=== PATIENT | female | born 1995 | race Hispanic/Latino ===

== ENCOUNTER 2024-06-07 05:39 | Inpatient (IN) | payer BC ==
[2024-06-07] MEDS ORDERED: Ketorolac Tromethamine 30 MG (1 mL) VIAL ONE (06:13)
[2024-06-07] MEDS ORDERED: Morphine 4 MG/ML VIAL ONE (06:13)
[2024-06-07] MEDS ORDERED: Ondansetron PF 4 MG/2 ML Vial ONE (06:14)
[2024-06-07 06:39] LABS: #Basophils 0.03 10x3/uL (0.0-0.2); #Eosinophils Less than 0.03 10x3/uL (0.0-0.7); %Basophils 0.3 % (0.0-1.0); %Eosinophils 0.2 % (0.0-10.0); %Lymphocytes 12.5 % (21.0-51.0); %Monocytes 3.6 % (0.0-10.0); %Neutrophils 83.1 % (42.0-75.0); Hematocrit 37.1 % (36.0-47.0); Hemoglobin 12.4 g/dL (12.0-16.0); Mean Corpuscular HGB CONC 33.4 g/dL (32.0-36.0); Mean Corpuscular Hemoglobin 27.9 pg (27.0-31.0); Mean Corpuscular Volume 83.6 fL (78.0-98.0); Mean Platelet Volume 9.1 fL (7.4-10.4); Platelet Count 354 10x3/uL (130-400); RBC Distribution Width 12.8 % (11.5-14.5); Red Blood Cell (RBC) Count 4.44 mill/uL (4.20-5.40)
[2024-06-07 06:51] LABS: BHCG - Serum Negative (NEGATIVE); Pregs Control Background? CLEAR/WHITE (CLR/WHITE); Pregs Control Bar Appear? YES (CONTROL BAR)
[2024-06-07 07:00] LABS: Troponin I Less than 0.010 ng/mL (< 0.028)
[2024-06-07 07:53] LABS: ALT (SGPT) 123 U/L (Less than 34); AST (SGOT) 81 U/L (11-34); Albumin 3.6 g/dL (3.1-4.5); Alkaline Phosphatase 213 U/L (40-110); Anion Gap 11 mmol/L (10-20); BUN (Urea Nitrogen) 9 mg/dL (7.0-18.7); Bilirubin, Total 0.7 mg/dL (0.3-1.2); Calc. Creatinine Clearance 0 mL/min (70-130); Carbon Dioxide 24 mmol/L (22-29); Chloride 107 mmol/L (98-107); Estimated GFR 101; Globulin 3.6 g/dL (2.4-3.5); Glucose 118 mg/dL (70-105); Lipase Greater than 4815 U/L (8-78); Potassium 3.7 mmol/L (3.5-5.1); Protein, Total 7.2 g/dL (6.0-8.3); Sodium 138 mmol/L (136-145)
[2024-06-07] MEDS ORDERED: Sodium Chloride 0.9% 100 ML ONE (08:46)
[2024-06-07] MEDS ORDERED: Piperacillin/Tazobactam 3.375 GM VIAL ONE (08:47)
[2024-06-07] MEDS ORDERED: Ondansetron ODT 4 MG TAB PO PRN (09:53)
[2024-06-07] MEDS ORDERED: Acetaminophen 325 MG TAB PO PRN (09:53)
[2024-06-07] MEDS ORDERED: Acetaminophen 650 MG Suppository PR PRN (09:53)
[2024-06-07] MEDS ORDERED: Electrolyte Replacement Protocol 1 EACH FS SCH (10:00)
[2024-06-07] MEDS ORDERED: Piperacillin/Tazobactam 3.375 GM in Sodium Chloride 0.9% 100 ML IVPB SCH (10:00)
[2024-06-07 10:23] LABS: Calcium 9.2 mg/dL (7.8-10.44); Magnesium 1.7 mg/dL (1.6-2.6)
[2024-06-07] MEDS ORDERED: Electrolyte Replacement Protocol FS PRN (11:00)
[2024-06-07] MEDS: Morphine 4 MG/ML VIAL SLOW IVP PRN (11:09)
[2024-06-07] MEDS: Sodium Chloride 0.9% 1,000 ML IV SCH (11:09)
[2024-06-07] MEDS: Magnesium 2 GM/50 ML(in water) 2 GM in Premix 1 BAG IVPB SCH (11:09)
[2024-06-07 12:20] LABS: Bacteria/HPF None Seen HPF (None Seen); Bilirubin Negative (Negative); Blood, Urine Negative (Negative); CAUTI Indications for Culture Dysuria,urgency,freq; Clarity Extra Turbid (Clear); Glucose, Urine (Dipstick) Normal (Negative); Ketone, Urine Negative (Negative); Leukocyte 25 Leu/uL (Negative); Nitrite Negative (Negative); Protein, Urine (Dipstick) 10 mg/dL (Neg-Trace); RBC/HPF None Seen HPF (0-3); Specific Gravity, Urine 1.028 (1.002-1.036); WBC/HPF None Seen HPF (0-3)
[2024-06-07 12:22] LABS: Urine Culture Reflex No No
[2024-06-07] MEDS: Piperacillin/Tazobactam 3.375 GM in Sodium Chloride 0.9% 100 ML IVPB SCH (13:29)
[2024-06-07 14:00] VITALS: BMI 30.7
[2024-06-07] MEDS: Ondansetron PF 4 MG/2 ML Vial IVP PRN (20:15)
[2024-06-08 07:08] LABS: #Basophils 0.04 10x3/uL (0.0-0.2); %Basophils 0.5 % (0.0-1.0); %Eosinophils 0.5 % (0.0-10.0); %Lymphocytes 28.4 % (21.0-51.0); %Monocytes 5.3 % (0.0-10.0); %Neutrophils 64.9 % (42.0-75.0); Hematocrit 35.6 % (36.0-47.0); Hemoglobin 11.3 g/dL (12.0-16.0); Mean Corpuscular HGB CONC 31.7 g/dL (32.0-36.0); Mean Corpuscular Hemoglobin 27.8 pg (27.0-31.0); Mean Corpuscular Volume 87.7 fL (78.0-98.0); Platelet Count 288 10x3/uL (130-400); RBC Distribution Width 12.9 % (11.5-14.5); Red Blood Cell (RBC) Count 4.06 mill/uL (4.20-5.40)
[2024-06-08] MEDS ORDERED: Indomethacin 50 MG SUPP ONE (07:40)
[2024-06-08] MEDS ORDERED: Iopamidol 15 ML ONE (07:41)
[2024-06-08 08:09] LABS: ALT (SGPT) 64 U/L (Less than 34); AST (SGOT) 30 U/L (11-34); Albumin 2.8 g/dL (3.1-4.5); Alkaline Phosphatase 150 U/L (40-110); Anion Gap 10 mmol/L (10-20); BUN (Urea Nitrogen) 9 mg/dL (7.0-18.7); Bilirubin, Total 0.4 mg/dL (0.3-1.2); Calc. Creatinine Clearance 102 mL/min (70-130); Calcium 7.8 mg/dL (7.8-10.44); Carbon Dioxide 20 mmol/L (22-29); Chloride 112 mmol/L (98-107); Estimated GFR 80; Globulin 2.9 g/dL (2.4-3.5); Glucose 64 mg/dL (70-105); Lipase 197 U/L (8-78); Potassium 3.4 mmol/L (3.5-5.1); Protein, Total 5.7 g/dL (6.0-8.3); Sodium 139 mmol/L (136-145)
[2024-06-08] MEDS ORDERED: Promethazine HCl 25 MG/ML VIAL IM PRN (08:33)
[2024-06-08] MEDS ORDERED: Ondansetron HCl/PF 4 MG/2 ML Vial IVP PRN (08:33)
[2024-06-08] MEDS ORDERED: HYDROmorphone 2 MG/ML VIAL SLOW IVP PRN (08:33)
[2024-06-08] MEDS ORDERED: Ondansetron PF 4 MG/2 ML Vial ONE (08:36)
[2024-06-08] MEDS ORDERED: Lidocaine 2% PF 100 mg/5 ml Syringe ONE (08:36)
[2024-06-08] MEDS ORDERED: fentaNYL PF 100 MCG/2 ML SYRINGE ONE (08:36)
[2024-06-08] MEDS ORDERED: Rocuronium Bromide 10 MG/ML (10ML VIAL) ONE (08:36)
[2024-06-08] MEDS ORDERED: PROPOFOL 20 ML ONE (08:36)
[2024-06-08] MEDS ORDERED: Dexamethasone 4 mg/ml Vial ONE (08:36)
[2024-06-08] MEDS ORDERED: Potassium Chloride 20 MEQ in Premix 1 BAG IVPB SCH (09:00)
[2024-06-08] MEDS ORDERED: ePHEDrine Sulfate 50 MG/10 ML VIAL ONE (09:23)
[2024-06-08] MEDS ORDERED: Promethazine HCl 25 MG/ML VIAL ONE (10:39)
[2024-06-08] MEDS: Potassium Chloride 20 MEQ TAB PO SCH (12:22)
[2024-06-08] MEDS: Lactated Ringer's 1,000 ML IV SCH (12:23)
[2024-06-08] MEDS: Morphine 2 MG/ML VIAL SLOW IVP PRN (14:21)
[2024-06-09 06:02] LABS: #Basophils Less than 0.03 10x3/uL (0.0-0.2); #Eosinophils Less than 0.03 10x3/uL (0.0-0.7); %Basophils 0.2 % (0.0-1.0); %Eosinophils 0.1 % (0.0-10.0); %Lymphocytes 31.2 % (21.0-51.0); %Monocytes 7.1 % (0.0-10.0); %Neutrophils 61.2 % (42.0-75.0); Hematocrit 31.2 % (36.0-47.0); Hemoglobin 10.1 g/dL (12.0-16.0); Mean Corpuscular HGB CONC 32.4 g/dL (32.0-36.0); Mean Corpuscular Hemoglobin 28.1 pg (27.0-31.0); Mean Corpuscular Volume 86.9 fL (78.0-98.0); Platelet Count 266 10x3/uL (130-400); RBC Distribution Width 12.7 % (11.5-14.5); Red Blood Cell (RBC) Count 3.59 mill/uL (4.20-5.40)
[2024-06-09 06:16] LABS: Anion Gap 12 mmol/L (10-20); BUN (Urea Nitrogen) 5 mg/dL (7.0-18.7); Calc. Creatinine Clearance 141 mL/min (70-130); Calcium 8.1 mg/dL (7.8-10.44); Carbon Dioxide 18 mmol/L (22-29); Chloride 112 mmol/L (98-107); Estimated GFR 118; Glucose 87 mg/dL (70-105); Potassium 3.9 mmol/L (3.5-5.1); Sodium 138 mmol/L (136-145)
[2024-06-09] MEDS ORDERED: Sodium Chloride 0.9% 100 ML ONE (12:40)
[2024-06-09] MEDS ORDERED: Piperacillin/Tazobactam 3.375 GM VIAL ONE (12:40)
[2024-06-09] MEDS ORDERED: fentaNYL PF 100 MCG/2 ML SYRINGE ONE (14:56)
[2024-06-09] MEDS ORDERED: Midazolam HCl 2 mg/2 ml Vial ONE (14:56)
[2024-06-09] MEDS ORDERED: PROPOFOL 20 ML ONE (14:56)
[2024-06-09] MEDS ORDERED: EPINEPHrine 1 MG/ML VIAL ONE (14:57)
[2024-06-09] MEDS ORDERED: Bupivacaine 0.25% HCL 30 ML VIAL ONE (14:57)
[2024-06-09] MEDS ORDERED: Rocuronium Bromide 10 MG/ML (10ML VIAL) ONE (14:58)
[2024-06-09] MEDS ORDERED: Dexamethasone 4 mg/ml Vial ONE (14:58)
[2024-06-09] MEDS ORDERED: Lidocaine 1% PF 5 ML VIAL ONE (14:58)
[2024-06-09] MEDS ORDERED: Glycopyrrolate 0.2 MG/ML 5 ML SYRINGE ONE (14:59)
[2024-06-09] MEDS ORDERED: Ondansetron PF 4 MG/2 ML Vial ONE (15:51)
[2024-06-09] MEDS ORDERED: SUGAMMADEX SODIUM 200 MG/2 ML VIAL ONE (15:53)
[2024-06-09] MEDS ORDERED: Ketorolac Tromethamine 30 MG (1 mL) VIAL ONE (15:54)
[2024-06-09] MEDS ORDERED: PACU-Morphine 4MG/ML VIAL SLOW IVP PRN (16:35)
[2024-06-09] MEDS ORDERED: HYDROmorphone 2 MG/ML VIAL SLOW IVP PRN (16:35)
[2024-06-09] MEDS ORDERED: Morphine Sulfate 2 MG/ML SYRINGE SLOW IVP PRN (16:35)
[2024-06-09] MEDS ORDERED: Promethazine HCl 25 MG/ML VIAL IM PRN (16:35)
[2024-06-09] MEDS ORDERED: Ondansetron HCl/PF 4 MG/2 ML Vial IVP PRN (16:35)
[2024-06-09] MEDS: Phenol 177 ML BOT PO PRN (20:55)
[2024-06-10 09:51] LABS: ALT (SGPT) 42 U/L (Less than 34); AST (SGOT) 22 U/L (11-34); Albumin 2.9 g/dL (3.1-4.5); Alkaline Phosphatase 127 U/L (40-110); Bilirubin, Direct 0.2 mg/dL (0.1-0.3); Bilirubin, Total 0.4 mg/dL (0.3-1.2)
[2024-06-10 13:25] VITALS: BP 122/82; TEMP 98.1
== END 2024-06-10 13:16 | disposition home or self-care (01) | DRG 419 ==
LOC: ERS 05:39 → T4-A 09:15
PROVIDERS: ADMIT Family Medicine; ATTEND Internal Medicine
PROC: 0FC98ZZ Extirpation of Matter from Common Bile Duct, Via Natural or Artificial Opening Endoscopic (ICD-10-PCS; 2024-06-08)
PROC: BF141ZZ Fluoroscopy of Gallbladder, Bile Ducts and Pancreatic Ducts using Low Osmolar Contrast (ICD-10-PCS; 2024-06-08)
PROC: 0FT44ZZ Resection of Gallbladder, Percutaneous Endoscopic Approach (ICD-10-PCS; principal; 2024-06-09)
PROC: 3E033XZ Introduction of Vasopressor into Peripheral Vein, Percutaneous Approach (ICD-10-PCS; 2024-06-09)
DX: K85.10 Biliary acute pancreatitis without necrosis or infection (principal); E66.9 Obesity, unspecified; Z88.8 Allergy status to other drugs, medicaments and biological substances; Z71.3 Dietary counseling and surveillance; Z68.30 Body mass index [BMI] 30.0-30.9, adult; R79.89 Other specified abnormal findings of blood chemistry; K80.50 Calculus of bile duct without cholangitis or cholecystitis without obstruction; K83.8 Other specified diseases of biliary tract
CPT/HCPCS: 36415; 74181; 74330; 76376; 76705; 80048; 80053; 80076; 81001; 83605; 83690; 83735; 84478; 84484; 84703; 85025; 88304; 93005; 96361; 96374; 96375; A4649; A6258; C1713; C1725; J0171; J0665; J1100; J1885; J2003; J2250; J2270; J2272; J2405; J2543; J2550; J2704; J3475; J7030; J7120; Q9967